=== PATIENT | female | born 1970 | race Caucasian/White ===

== ENCOUNTER 2020-07-15 17:26 | Observation (INO) | payer OTHER ==
[~2020-07-15] VITALS: Ht 154.9 cm; Wt 84.1 kg
[2020-07-15 17:36] VITALS: Ht 154.9 cm; Wt 84.1 kg
--- NOTE | 2020-07-15 17:45 | NUR ---
ABOVE ASSESEMENT DONE BY NURIA JACOBSON.
--- NOTE | 2020-07-15 17:46 | NUR ---
PT RESTING IN BED, AAOX4 WITH C/O DIZZINESS WITH GENERALIZED WEAKNESS S/P VAGINAL BLEEDING SINCE Jun. PT STATES SHE WAS SEEN BY HER PCP AND WAS TOLD TO COME TO THE ER FOR LOW BLOOD LEVELS. PT DENIES ANY N/V/D/C, RESP ILLNESS, FEVER OR URINARY PROBLEMS AT THIS TIME. NO SIGNS OF DISTRESS.
[2020-07-15 18:08] LABS: BASOPHIL % 0.8 % (0.2-1.3)
[2020-07-15 18:15] LABS: PLATELET COUNT 595 x10^3mcL (179-408); RED CELL DISTRIBUTION WIDTH 15.6 % (12.3-17.7)
[2020-07-15 18:19] LABS: CALCIUM 8.5 mg/dL (8.5-10.1); CARBON DIOXIDE 25.6 mmol/L (21-32); CREATININE SERUM 1.1 mg/dL (0.6-1.0); POTASSIUM SERUM 3.5 mmol/L (3.5-5.1)
[2020-07-15 18:23] LABS: ALBUMIN 3.5 g/dL (3.4-5.0); BILIRUBIN TOTAL 0.3 mg/dL (0.20-1.00); TOTAL PROTEIN, SERUM 7.3 g/dL (6.4-8.2)
--- NOTE | 2020-07-15 18:55 | NUR ---
PT RESTING IN BED WITH NO SIGNS OF DISTRESS.
--- NOTE | 2020-07-15 19:06 | NUR ---
REPORT RECEIVED FROM NURIA JACOBSON TO ASSUME CARE OF PT.
[2020-07-15] MEDS ORDERED: BIRTH CONTROL (20:38)
--- NOTE | 2020-07-15 20:39 | NUR ---
PT IS RESTING IN GURNEY, RESP E/U, NAD NOTED, PT REMAINS ON LOADING UNIT OPERATOR SEATING WITH NSR AND PULSE OX. PT SIGNED CONSENT FOR BLOOD TRANSFUSION, INDIRA SYLVESTER WITNESS.
--- NOTE | 2020-07-15 21:35 | NUR ---
BLOOD TRANSFUSION IN PROGRESS. PT IS RESTING IN GURNEY, RESP E/U, NAD NOTED. PT DENIES ANY ADVERSE REACTIONS TO BLOOD TRANSFUSION. PT REMAINS ON LIQUID FLOOR AND WALL APPLIER AND PULSE OX. CALL LIGHT IS WITHIN REACH.
--- NOTE | 2020-07-15 21:42 | NUR ---
ATTEMPTED TO GIVE REPORT TO ARTUR JACOBSON, PER ARTUR WILL CALL BACK.
--- NOTE | 2020-07-15 21:48 | NUR ---
REPORT GIVEN TO ARTUR JACOBSON TO ASSUME CARE OF PT.
--- NOTE | 2020-07-15 22:30 | NUR ---
PATIENT IN BED RESTING, ALERT AND ORIENTED X4, INTRODUCE MYSELF. PATIENT DENIES ANY PAIN AT THIS TIME, IV BEEPING DUE TO PRESSURE, FIXED. CONT WITH BLOOD TRANSFUSION. IV TO RFA PATENT AND NO INFILTRATION NOTED. ORIENTED TO CALL LIGHT. MED-SURG PATIENT. ASSESSMENT COMPLETED. CARE ENDORSE TO ARTUR JACOBSON.
[2020-07-15 23:02] VITALS: BP 130/87
[2020-07-15 23:30] VITALS: BP 119/76
--- NOTE | 2020-07-15 23:40 | NUR ---
IV TO RFA DC'D. NEW IV PLACED IN LH 20G. BLOOD TRANSFUSION COMPLETE. VITAL SIGNS STABLE T:99.3 P:81 BP:119/76 R:16 O2:100. PT TOLERATED WELL.
--- NOTE | 2020-07-16 02:34 | NUR ---
RECEIVED PT FROM RESOURCE NURSE. PT SEEN RESTING IN BED. NO ACUTE RESP DISTRESS NOTED, BREATHING EVEN AND UNLABORED. DENIES ANY CP/PRESSURE AT THIS TIME. BLOOD TRANSFUSION IN PROGRESS. BED IN LOWEST POSITION. PT ORIENTED TO CALL LIGHT, WITHIN REACH.
[2020-07-16 06:27] VITALS: BP 131/64
--- NOTE | 2020-07-16 06:52 | NUR ---
PT SEEN RESTING IN BED. NO ACUTE RESP DISTRESS NOTED. NO CP/PRESSURE AT THIS TIME. BED IN LOWEST POSITION, CALL LIGHT WITHIN REACH. WILL ENDORSE ALL CARE TO ONCOMING NURSE.
--- NOTE | 2020-07-16 07:30 | NUR ---
RECIEVED REPORT FROM CERAMIC TILE INSTALLATION HELPER NURSE PT IS RESTING IN BED AT THIS TIME.NO ACUTE DISTRESS NOTED RR EVEN AND UNLABORED. NO C/O CHEST PAIN/ PRESSURE O2 SAT OF 98% ON RA. CALL LIGHT W/IN REACH. BED LOCKED AND IN LOWEST POSITION. WILL CONTINUE TO MONITOR.
[2020-07-16 07:44] LABS: PLATELET COUNT 475 x10^3mcL (179-408); RED CELL DISTRIBUTION WIDTH 15.3 % (12.3-17.7)
[2020-07-16 08:00] LABS: CALCIUM 8.2 mg/dL (8.5-10.1); CARBON DIOXIDE 23.2 mmol/L (21-32); CHLORIDE SERUM 106 mmol/L (98-107); CREATININE SERUM 0.8 mg/dL (0.6-1.0); GFR1 > 60 mL/min; GLUCOSE SERUM 70 mg/dL (74-106); POTASSIUM SERUM 3.6 mmol/L (3.5-5.1); SODIUM SERUM 140 mmol/L (136-145)
[2020-07-16 08:25] VITALS: BP 107/72
[2020-07-16 12:10] VITALS: BP 111/72
[2020-07-16 13:16] VITALS: BP 111/72
--- NOTE | 2020-07-16 14:54 | NUR ---
PT AAOX4 CALM, VITAL SIGNS STABLE BP: 138/88 P: 76 TEMP: 98.7 O2 SATURATION AT 98% VIA ROOM AIR. PT IS AMBULATORY, WILL BE PICKED UP BY . FOLLOW UP INSTRUCTIONS WITH PCP GIVEN INFOMATION AND EDUCATION PROVIDED ABOUT BLOOD TRANSFUSION AND ANEMIA PT VERBALIZED UNDERSTANDING. PT VISIT REPORT , MEDICARE INFORMATION PAGE AND BELONGINGS SIGNED. BELONGINGS WITH PATIENT AT TIME OF DEPARTURE. ARM BANDS, IV REMOVED BEFORE DEPARTURE.
== END 2020-07-16 14:58 | disposition home or self-care (01) ==
LOC: ED 17:26 → DU 18:06 → MU 18:06
PROVIDERS: Emergency Medicine; ADMIT Hospitalist; ATTEND Hospitalist
DX: D64.9 Anemia, unspecified (principal); N93.9 Abnormal uterine and vaginal bleeding, unspecified; R53.83 Other fatigue; R06.02 Shortness of breath; Z20.822 Contact with and (suspected) exposure to COVID-19
CPT/HCPCS: G0378; J7030; J7050; P9016